=== PATIENT | male | born 1940 | race Caucasian/White ===

== ENCOUNTER 2017-10-29 09:10 | Day surgery (SDC) | payer MEDICARE ==
[~2017-10-29] VITALS: Ht 179.1 cm; Wt 74.8 kg
[~2017-10-29 09:10] MED LIST: ALBU18HF2 INH; FURO-150 PO
[2017-10-29 09:40] VITALS: BP 129/83
[2017-10-29] MEDS ORDERED: POTASSIUM CHLORIDE PO (09:58)
[2017-10-29] MEDS ORDERED: FLUT1BLS3 INH (09:58)
[2017-10-29 11:10] VITALS: BP 135/82
[2017-10-29 11:23] VITALS: BP 128/80
[2017-10-29 11:30] VITALS: BP 125/66
== END 2017-10-29 11:40 | disposition home or self-care (01) ==
LOC: SSTAY O 09:10
PROVIDERS: ATTEND Radiology Diagnostic Radiology
DX: Z46.82 Encounter for fitting and adjustment of non-vascular catheter (principal); J44.9 Chronic obstructive pulmonary disease, unspecified; I11.0 Hypertensive heart disease with heart failure; I50.9 Heart failure, unspecified; D64.89 Other specified anemias; I73.89 Other specified peripheral vascular diseases; Z79.899 Other long term (current) drug therapy; Z85.118 Personal history of other malignant neoplasm of bronchus and lung; Z85.01 Personal history of malignant neoplasm of esophagus
CPT/HCPCS: 71045; A6223; A6257; A6449; G0463

== ENCOUNTER 2017-11-08 11:13 | Emergency (ER) | payer MEDICARE, OTHER ==
[~2017-11-08] VITALS: Ht 177.8 cm; Wt 74.0 kg
[~2017-11-08 11:13] MED LIST changes: +FLUT1BLS3 INH; +POTASSIUM CHLORIDE PO
[2017-11-08] MEDS ORDERED: methylPREDNISolone sod succ 125mg/2ml vial IV ONE (11:20)
[2017-11-08] MEDS ORDERED: normal saline 1000ML IV soln IVB ONE (11:20)
[2017-11-08 12:03] LABS: BASOPHILS % (AUTO) 0 % (0-1); EOSINOPHILS # (AUTO) 0.3 X10'3 (0-0.9); HEMATOCRIT 31.6 % (42.0-52.0); HEMOGLOBIN 10.4 g/dl (14.0-17.9); LYMPHOCYTES # (AUTO) 0.3 X10'3 (1.1-4.8); LYMPHOCYTES % (AUTO) 3.7 % (21-51); MEAN CORPUSCULAR HEMOGLOBIN 30.9 PG (27.0-31.0); MEAN CORPUSCULAR HGB CONC 32.9 % (33.0-36.5); MEAN CORPUSCULAR VOLUME 93.9 FL (78-98); MEAN PLATELET VOLUME 7.2 FL (7.4-10.4); MONOCYTES # (AUTO) 1.1 X10'3 (0-0.9); MONOCYTES % (AUTO) 12.8 % (2-12); NEUTROPHILS % (AUTO) 79.5 % (42-75); PLATELET COUNT 299 X10'3 (140-440); RED BLOOD COUNT 3.36 X10'6 (4.70-6.10); RED CELL DISTRIBUTION WIDTH 18.1 % (11.5-14.5); WHITE BLOOD COUNT 8.8 X10'3 (4.5-11.0)
[2017-11-08 12:15] LABS: D-DIMER 2.22 MG/L FEU (0-0.50); INR 1.2 INR
[2017-11-08 12:26] LABS: ALANINE AMINOTRANSFERASE 17 U/L (12-78); ALBUMIN 2.3 G/DL (3.4-5.0); ALBUMIN/GLOBULIN RATIO 0.4 (1.1-1.5); ALKALINE PHOSPHATASE 218 IU/L (46-116); ANION GAP 5 (8-16); ASPARTATE AMINO TRANSFERASE 19 U/L (10-37); BILIRUBIN,TOTAL 0.8 MG/DL (0.1-1.0); BLOOD UREA NITROGEN 16 MG/DL (7-18); BUN/CREATININE RATIO 14.3 (5.4-32.0); CALCIUM 9.1 MG/DL (8.5-10.1); CHLORIDE 101 MMOL/L (99-107); CREATININE 1.12 MG/DL (0.60-1.10); GLUCOSE 134 MG/DL (70-104); POTASSIUM 4.2 MMOL/L (3.5-5.1); SODIUM 138 MMOL/L (135-145); TOTAL CARBON DIOXIDE 31.7 MMOL/L (24-32); TOTAL PROTEIN 7.6 G/DL (6.4-8.2); eGFR 64 ML/MIN
[2017-11-08] MEDS ORDERED: levoFLOXACIN-Levaquin 750MG/D5 150 ML IV ONE (12:35)
[2017-11-08] MEDS ORDERED: furosemide 10 MG/1 ML 10ml inj IV ONE (12:35)
[2017-11-08 14:40] VITALS: BP 145/88
[2017-11-08] MEDS ORDERED: LEVO500T2 PO (16:31)
== END 2017-11-08 16:49 | disposition home or self-care (01) ==
LOC: ER 11:13
DX: I11.0 Hypertensive heart disease with heart failure (principal); I50.9 Heart failure, unspecified; J90 Pleural effusion, not elsewhere classified; J44.9 Chronic obstructive pulmonary disease, unspecified; C34.90 Malignant neoplasm of unspecified part of unspecified bronchus or lung; Z79.899 Other long term (current) drug therapy; Z98.890 Other specified postprocedural states
CPT/HCPCS: 36415; 71045; 71250; 76604; 80053; 83605; 83880; 84484; 85025; 85379; 85610; 87040; 93005; 96361; 96365; 96366; 96375; 99285; J1940; J1956; J2930; J7030

== ENCOUNTER 2017-12-06 13:44 | Outpatient (CLI) | payer MEDICARE, OTHER | END 2017-12-06 23:59 | disposition home or self-care (01) | LOC: RAD 13:44 | PROVIDERS: ATTEND Student in an Organized Health Care Education/Training Program | DX: C34.31 Malignant neoplasm of lower lobe, right bronchus or lung (principal); J90 Pleural effusion, not elsewhere classified; J44.9 Chronic obstructive pulmonary disease, unspecified; I12.9 Hypertensive chronic kidney disease with stage 1 through stage 4 chronic kidney disease, or unspecified chronic kidney disease; Z87.891 Personal history of nicotine dependence | CPT/HCPCS: 76604 ==

== ENCOUNTER 2017-12-17 08:19 | Day surgery (SDC) | payer MEDICARE, OTHER ==
[2017-12-17] VITALS (8 sets, daily range): BP systolic 101–129; BP diastolic 53–76
[~2017-12-17] VITALS: Ht 177.8 cm; Wt 71.6 kg
[~2017-12-17 08:19] MED LIST changes: +LIDOcaine 1% 30ml preserv. free vial SQ STA
== END 2017-12-17 11:20 | disposition home or self-care (01) ==
LOC: SSTAY O 08:19
PROVIDERS: ATTEND Radiology Diagnostic Radiology
DX: J90 Pleural effusion, not elsewhere classified (principal); J44.9 Chronic obstructive pulmonary disease, unspecified; I10 Essential (primary) hypertension; Z85.118 Personal history of other malignant neoplasm of bronchus and lung; Z79.82 Long term (current) use of aspirin; Z85.01 Personal history of malignant neoplasm of esophagus; Z87.891 Personal history of nicotine dependence; Z89.611 Acquired absence of right leg above knee; Z86.79 Personal history of other diseases of the circulatory system; Z98.890 Other specified postprocedural states
CPT/HCPCS: 32555; 71045; 88108; 88305; 88341; 88342

== ENCOUNTER 2018-01-03 08:30 | Day surgery (SDC) | payer MEDICARE ==
[~2018-01-03] VITALS: Ht 177.8 cm; Wt 71.9 kg
[2018-01-03] MEDS ORDERED: ESOM20CA PO (09:23)
[2018-01-03] MEDS ORDERED: ONDA4TAB12 PO (09:23)
[2018-01-03] MEDS ORDERED: ALBU18HF2 INH (09:23)
[2018-01-03] MEDS ORDERED: PROM25TA14 PO (09:23)
[2018-01-03] MEDS ORDERED: LIDO30CR23 TOP (09:23)
[2018-01-03 09:28] VITALS: BP 115/73
[2018-01-03 09:33] VITALS: BP 118/66
[2018-01-03 09:38] VITALS: BP 97/67
[2018-01-03 09:43] VITALS: BP 108/62
[2018-01-03] MEDS ORDERED: LIDOcaine 1%/PF (10mg/ml) 5ml vial ONE (10:00)
== END 2018-01-03 09:55 | disposition home or self-care (01) ==
LOC: SSTAY O 08:30
PROVIDERS: ATTEND Radiology Diagnostic Radiology
DX: J90 Pleural effusion, not elsewhere classified (principal); J44.9 Chronic obstructive pulmonary disease, unspecified; I10 Essential (primary) hypertension; Z85.01 Personal history of malignant neoplasm of esophagus; Z87.891 Personal history of nicotine dependence; Z89.611 Acquired absence of right leg above knee; Z85.118 Personal history of other malignant neoplasm of bronchus and lung; Z79.82 Long term (current) use of aspirin; Z98.890 Other specified postprocedural states; Z79.899 Other long term (current) drug therapy
CPT/HCPCS: 32555; 71045; J2001; A6258